=== PATIENT | female | born 1960 | race Caucasian/White ===

== ENCOUNTER 2017-10-13 13:39 | Emergency (ER) | payer OTHER ==
[~2017-10-13] VITALS: Ht 172.7 cm; Wt 65.8 kg
[~2017-10-13 13:39] MED LIST: COUMADIN2 MG PO
[2017-10-13] MEDS ORDERED: IBUPROFEN 600 MG TAB PO STA (14:16)
--- NOTE | 2017-10-13 14:54 | Diagnostic Imaging Report ---
EXAMINATION: PA and lateral views of the chest. COMPARISON: None CLINICAL HISTORY: Rule out PNA, weakness DISCUSSION: Lines/tubes: Left upper chest multilead cardiac device. Lungs: The lungs are well inflated and clear. There is no evidence of pneumonia or pulmonary edema. Pleura: There is no pleural effusion or pneumothorax. Heart and mediastinum: Cardiomediastinal silhouette is unremarkable. Pulmonary vasculature is normal. Prosthetic mitral valve. Bones and soft tissues: No acute bony abnormalities. Deformity of the right ninth rib, likely representing old healed fracture. Midline sternotomy wires. IMPRESSION: No acute cardiopulmonary abnormalities. Signed by: Dr. Volodymyr Escalante M.D. on 10/13/2017 2:50 PM
== END 2017-10-13 16:27 | disposition home or self-care (01) ==
LOC: ER 13:39
DX: R50.9 Fever, unspecified (principal); R05 Cough; J01.00 Acute maxillary sinusitis, unspecified; J01.10 Acute frontal sinusitis, unspecified
CPT/HCPCS: 71046; 87400; 99283

== ENCOUNTER 2018-01-08 17:19 | Inpatient (IN) | payer OTHER ==
[~2018-01-08] VITALS: Ht 162.6 cm; Wt 74.6 kg
[2018-01-08 18:06] LABS: BASOPHILS # (AUTO) 0.1 (0.0-0.1); BASOPHILS % 0.5 % (0.0-1.0); EOSINOPHILS # (AUTO) 0.4 (0.0-0.4); EOSINOPHILS % 2.5 % (0.0-6.0); HEMATOCRIT 36.2 % (34.2-44.1); HEMOGLOBIN 11.9 g/dL (12.0-16.0); LYMPHOCYTES # (AUTO) 2.1 (1.0-3.2); LYMPHOCYTES % 14.5 % (18.0-39.1); MEAN CORPUSCULAR HEMOGLOBIN 32.7 pg (28-32); MEAN CORPUSCULAR HGB CONC 32.9 g/dL (31-35); MEAN CORPUSCULAR VOLUME 99.5 fL (81-99); MONOCYTES # (AUTO) 1.6 (0.2-0.8); MONOCYTES % 11.3 % (4.4-11.3); NEUTROPHILS # (AUTO) 10.1 (2.1-6.9); NEUTROPHILS % 70.6 % (38.7-80.0); PLATELET COUNT 233 x10e3/uL (140-360); RED BLOOD COUNT 3.64 x10e6/uL (3.6-5.1); RED CELL DISTRIBUTION WIDTH 13.3 % (11.7-14.4)
[2018-01-08 18:10] LABS: INR 3.03; PROTHROMBIN TIME 29.5 seconds (11.9-14.5)
[2018-01-08 18:12] LABS: PARTIAL THROMBOPLASTIN TIME 90.4 seconds (23.8-35.5)
[2018-01-08 18:18] LABS: ALBUMIN/GLOBULIN RATIO 0.9 (0.8-2.0); ANION GAP 12.7 mmol/L (8-16); CALCIUM 8.1 mg/dL (8.4-10.2); CREATININE, SERUM 1.45 mg/dL (0.57-1.11); POTASSIUM 3.7 mmol/L (3.5-5.1)
[2018-01-08] MEDS ORDERED: GABAPENTIN300 MG PO (18:20)
[2018-01-08] MEDS ORDERED: OXYBUTYNIN CHLOR5 MG PO (18:20)
[2018-01-08] MEDS ORDERED: PROPRANOLOL HCL40 MG PO (18:20)
[2018-01-08] MEDS ORDERED: OMEPRAZOLE40 MG PO (18:20)
[2018-01-08] MEDS ORDERED: CHANTIX0.5 MG PO (18:20)
[2018-01-08] MEDS ORDERED: ABILIFY5 MG PO (18:20)
[2018-01-08] MEDS ORDERED: CLONIDINE HCL0.1 MG PO (18:20)
[2018-01-08 18:24] LABS: CREATINE KINASE MB 0.3 ng/mL (0-5.0)
[2018-01-08] MEDS ORDERED: SODIUM CHLORIDE 0.9% 1000ML 1,000 ML IV SCH (18:30)
--- NOTE | 2018-01-08 18:50 | Diagnostic Imaging Report ---
Examination: CT BRAIN WITHOUT CONTRAST History:Syncope, fall Comparison studies:None Technique: Axial images were obtained from the skull base to the vertex. Coronal and sagittal images reconstructed from the axial data. Intravenous contrast: None Findings: Scalp: No abnormalities. Bones: No fractures, blastic or lytic lesions. Brain sulci: Mildly prominent. Ventricles: Mildly prominent supratentorial ventricles. No hydrocephalus. Extra-axial space: Enlarged subarachnoid spaces along the superior convexities bilaterally. No acute abnormality. Parenchyma: Cortical-based encephalomalacia of the left posterior cerebral artery territory, primarily involving the cuneus of the left occipital lobe. Sellar/suprasellar region: No abnormalities. Craniocervical junction: Patent foramen magnum. No Chiari one malformation. Incidental findings: Atherosclerotic calcifications at the carotid siphons. Impression: 1. No acute intracranial abnormality. 2. 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 3. Mild generalized volume loss. This preliminary report was completed by the neuroradiology fellow Dr. Mac Razo. The images and preliminary report were reviewed and signed by Dr. Madhavi Manzanares, neuroradiology faculty, on 01/08/2018 at 2140 hours. Signed by: Dr. Madhavi Manzanares M.D. on 01/08/2018 9:40 PM
--- NOTE | 2018-01-08 18:50 | Diagnostic Imaging Report ---
PROCEDURE: A single AP view of the chest. COMPARISON: Patients [facility], DX, CHEST 2 VIEWS, 10/13/2017, 14:19. INDICATIONS: falls FINDINGS: Lines/tubes: Stable left upper chest multilead cardiac device Lungs: The lungs are well inflated and grossly clear. There is no evidence of pneumonia or pulmonary edema. Pleura: There is no pleural effusion or pneumothorax. Heart and mediastinum: Cardiac silhouette is unremarkable. Pulmonary vasculature is normal. Prosthetic valve Bones: No acute bony abnormality. IMPRESSION: 1. No acute cardiopulmonary abnormalities. Volodymyr Escalante M.D. Dictated by: Volodymyr Escalante M.D. on 01/08/2018 at 18:53 Electronically approved by: Volodymyr Escalante M.D. on 01/08/2018 at 18:53
--- NOTE | 2018-01-08 18:50 | Diagnostic Imaging Report ---
PROCEDURE:X-RAY RIGHT SHOULDER, COMPLETE COMPARISON:None. INDICATIONS:falls FINDINGS: Mild osteopenia. No acute displaced fracture or dislocation. No lytic or blastic lesion. Glenohumeral joint is grossly unremarkable. No a.c. separation. Visualized portions of the right lung are clear. CONCLUSION: No acute abnormalities. Volodymyr Escalante M.D. Dictated by: Volodymyr Escalante M.D. on 01/08/2018 at 18:54 Electronically approved by: Volodymyr Escalante M.D. on 01/08/2018 at 18:54
[2018-01-08 19:07] LABS: LYMPHOCYTES % (MANUAL) 13 % (19-48); MONOCYTES % (MANUAL) 12 % (3.4-9.0); NEUTROPHILS % (MANUAL) 75 % (40-74)
[2018-01-08 19:08] LABS: PLATELET ESTIMATE ADEQUATE; RBC MORPHOLOGY COMMENT NORMAL
[2018-01-08] MEDS ORDERED: DIATRIZOATE MEGL/DIATRIZOA SOD 30 ML BTL PO ONE ×2 (19:57→20:08)
[2018-01-08 20:19] LABS: BILIRUBIN,URINE NEGATIVE (NEGATIVE); CLARITY,URINE CLEAR (CLEAR); COLOR,URINE YELLOW (YELLOW); KETONES,URINE NEGATIVE (NEGATIVE); LEUKOCYTE ESTERASE ,URINE 1+ (NEGATIVE); NITRITE,URINE NEGATIVE (NEGATIVE); PROTEIN,URINE DIPSTICK NEGATIVE (NEGATIVE); URINE UROBILINOGEN 0.2 mg/dL (0.2 - 1)
[2018-01-08 20:28] LABS: BACTERIA,URINE FEW /HPF; EPITHELIAL CELLS,URINE FEW /LPF; RBC,URINE 0-5 /HPF (0-5)
[2018-01-08] MEDS ORDERED: SODIUM CHLORIDE 0.9% 1000ML 1,000 ML IV STA (20:29)
[2018-01-08] MEDS: CEFEPIME HCL 2 GM VIAL IV SCH (21:19)
--- NOTE | 2018-01-08 22:06 | Diagnostic Imaging Report ---
EXAM: CT ABDOMEN/PELVIS WO DATE: 01/08/2018 7:48 PM INDICATION: \S\FALL X 2 ON COUMADIN, ABD PAIN, GFR 37 \S\[id number] \S\2130 \S\Y COMPARISON: None TECHNIQUE: The abdomen and pelvis were scanned using a multidetector helical scanner. Coronal and sagittal reformations were obtained. Routine protocol performed. IV Contrast: 0 ml Isovue 300/370 Oral contrast was administered. FINDINGS: Lack of IV contrast decreases sensitivity in evaluating abdominal and pelvic organs. LOWER THORAX: Mild bibasilar groundglass opacity, favor atelectasis/scarring. Partially imaged median sternotomy, pacing leads, and mitral valve prosthesis. LIVER/BILIARY: Subtle contour nodularity, which can be seen with underlying liver disease. No masses on noncontrast evaluation. GALLBLADDER: Contracted containing stones. SPLEEN: Unremarkable PANCREAS: Unremarkable ADRENALS: No nodules KIDNEYS: Bilateral extrarenal pelvises. Nonobstructing 3 mm left lower pole renal calculus. GI TRACT: No wall thickening or evidence of obstruction. Normal appendix. VESSELS: Severe atherosclerotic calcifications. PERITONEUM/RETROPERITONEUM: No free air or fluid LYMPH NODES: No lymphadenopathy REPRODUCTIVE ORGANS/BLADDER: Status post hysterectomy. Moderately distended fluid filled bladder. SOFT TISSUES: Fat-containing subxiphoid (neck 3.8 cm) and umbilical hernias. BONES: Multilevel degenerative changes. Healed left L3 transverse process fracture. IMPRESSION: No acute abnormality or intra-abdominal hemorrhage. Signed by: Dr Loretta Loera MD on 01/08/2018 10:02 PM
[2018-01-08] MEDS: MORPHINE SULFATE 2 MG/ML SYR IV PRN (22:24)
[2018-01-08] MEDS: FAMOTIDINE 20 MG/2 ML VIAL IV SCH (22:24)
[2018-01-08] MEDS: ONDANSETRON HCL INJ 2 MG/ML VIAL IV PRN (22:25)
[2018-01-09] VITALS (40 sets, daily range): BP systolic 83–155; BP diastolic 36–80
[2018-01-09] MEDS: SODIUM CHLORIDE 0.9% 1000ML 1,000 ML IV SCH ×4 (02:02→17:39)
[2018-01-09 02:27] LABS: CREATINE KINASE MB 0.5 ng/mL (0-5.0)
[2018-01-09] MEDS ORDERED: LISINOPRIL2.5 MG PO (02:33)
[2018-01-09] MEDS ORDERED: OMEPRAZOLE20 MG PO (02:33)
[2018-01-09] MEDS ORDERED: GABAPENTIN400 MG PO (02:33)
[2018-01-09] MEDS ORDERED: PROPRANOLOL HCL60 MG PO (02:33)
[2018-01-09] MEDS ORDERED: AMBIEN10 MG PO (02:34)
[2018-01-09] MEDS ORDERED: CETIRIZINE HCL10 MG PO (02:37)
[2018-01-09] MEDS ORDERED: BARACLUDE0.5 MG PO (02:38)
[2018-01-09] MEDS ORDERED: CLONAZEPAM0.5 MG PO (02:39)
[2018-01-09] MEDS ORDERED: NASONEX17 GM NS (02:42)
[2018-01-09] MEDS ORDERED: ALBUTEROL0.63 MG/3 IH (02:45)
[2018-01-09] MEDS: MORPHINE SULFATE 2 MG/ML SYR IV PRN ×4 (03:33→20:11)
[2018-01-09 06:06] LABS: BASOPHILS # (AUTO) 0.1 (0.0-0.1); BASOPHILS % 0.5 % (0.0-1.0); EOSINOPHILS # (AUTO) 0.3 (0.0-0.4); EOSINOPHILS % 2.8 % (0.0-6.0); HEMATOCRIT 32.6 % (34.2-44.1); HEMOGLOBIN 10.9 g/dL (12.0-16.0); LYMPHOCYTES # (AUTO) 2.3 (1.0-3.2); LYMPHOCYTES % 22.2 % (18.0-39.1); MEAN CORPUSCULAR HEMOGLOBIN 32.7 pg (28-32); MEAN CORPUSCULAR HGB CONC 33.4 g/dL (31-35); MEAN CORPUSCULAR VOLUME 97.9 fL (81-99); MONOCYTES # (AUTO) 1.1 (0.2-0.8); MONOCYTES % 10.3 % (4.4-11.3); NEUTROPHILS # (AUTO) 6.6 (2.1-6.9); NEUTROPHILS % 63.7 % (38.7-80.0); PLATELET COUNT 199 x10e3/uL (140-360); RED BLOOD COUNT 3.33 x10e6/uL (3.6-5.1); RED CELL DISTRIBUTION WIDTH 13.4 % (11.7-14.4)
[2018-01-09 06:44] LABS: ALANINE AMINOTRANSFERASE 10 IU/L (0-55); ALBUMIN 2.8 g/dL (3.5-5.0); ALBUMIN/GLOBULIN RATIO 0.8 (0.8-2.0); ALKALINE PHOSPHATASE 74 IU/L (40-150); ANION GAP 11.2 mmol/L (8-16); BLOOD UREA NITROGEN 12 mg/dL (7-26); BUN/CREATININE RATIO 13 (6-25); CALCIUM 8.5 mg/dL (8.4-10.2); CARBON DIOXIDE 20 mmol/L (22-29); CHLORIDE 112 mmol/L (98-107); CHOL/HDL RATIO 9.3 (3.0-3.6); CHOLESTEROL 278 MD/DL (0-199); CREATININE, SERUM 0.89 mg/dL (0.57-1.11); EST GLOMERULAR FILTRATION RATE > 60 ML/MIN (60-); GLUCOSE 110 mg/dL (74-118); HDL CHOLESTEROL 30 MG/DL (40-60); LDL CHOLESTEROL 222 MG/DL (60-130); MAGNESIUM 1.7 MG/DL (1.3-2.1); POTASSIUM 4.2 mmol/L (3.5-5.1); SODIUM 139 mmol/L (136-145); TRIGLYCERIDES 130 MG/DL (0-149)
[2018-01-09] MEDS: CEFEPIME HCL 2 GM VIAL IV SCH ×2 (07:25→20:18)
[2018-01-09 09:07] LABS: CREATINE KINASE MB 0.5 ng/mL (0-5.0)
--- NOTE | 2018-01-09 10:15 | History and Physical ---
HISTORY: Ms. Llanes is a 57-year-old female with history of coronary artery disease, hypertension, mitral valve replacement, liver cirrhosis, who was brought to the emergency room because yesterday she started feeling weak. As per patient, she had 2 syncopal episodes. She states she had 1 syncopal episode and then she got a little better and then she had another one, so they brought her to the emergency room. PAST MEDICAL HISTORY: She has history of hypertension, coronary artery disease status post CABG, mitral valve replacement, permanent pacemaker, liver cirrhosis, hepatitis B and C. ALLERGIES: NO KNOWN DRUG ALLERGIES. SOCIAL HISTORY: She smokes, but she does not drink. SURGICAL HISTORY: She had open heart surgery in 2007. She had mitral valve replacement. She has permanent pacemaker. She has had total hysterectomy. PHYSICAL EXAMINATION: GENERAL: Today, she is awake and alert. VITAL SIGNS: Temperature is 100.3, blood pressure is 100/45. HEART: Regular rate. LUNGS: Poor inspiratory effort. ABDOMEN: Distended and soft. BLOOD WORK: White count was 14.37, today is 10.39; hemoglobin is 10.9; hematocrit is 32.6. Sodium 139, potassium 4.2, creatinine 0.89, glucose 110. Cholesterol is elevated. Urine showed 6 to 10 white blood cells. Urine culture and blood cultures are pending. She had a shoulder x-ray that showed no acute abnormalities. She had a chest x-ray that showed no acute abnormalities. She had a head CT that showed no acute intracranial abnormalities, an old left posterior cerebral artery infarct. She had an abdominal and pelvic CT that showed no acute abnormalities. ASSESSMENT: 1. Syncopal episode. 2. Rule out sepsis. Patient has fever, leukocytosis, and hypotension. 3. Coronary artery disease status post coronary artery bypass graft. 4. History of mitral valve replacement. 5. Permanent pacemaker. 6. Liver cirrhosis. 7. History of hepatitis B and C. PLAN: At present time is to admit the patient to the hospital. She is on IV antibiotics. We are going to get a cardiology consult with Dr. Parish. We are going to get a neurology consult with Dr. Brown, and infectious disease consult with Dr. Watters. Once we have available, we are going to reconcile her home medications. All this was discussed with patient. All questions were answered to satisfaction. I spent more than 40 minutes examining patient, reviewing ER papers, overnight events, x-rays, and discussing treatment plan with patient. Job#: [id number]
[2018-01-09] MEDS: FAMOTIDINE 20 MG/2 ML VIAL IV SCH ×2 (12:33→20:18)
[2018-01-09] MEDS: ONDANSETRON HCL INJ 2 MG/ML VIAL IV PRN ×2 (14:10→20:08)
--- NOTE | 2018-01-09 15:42 | Consultation ---
DATE OF CONSULTATION: January 09, 2018 ADDENDUM Echocardiogram: Normal LV size with moderately impaired systolic function with EF between 30% and 35%. There is mild aortic stenosis as well as normally functioning mechanical mitral valve prosthesis. EKG: Electronic atrial pacemaker, left ventricular hypertrophy with QRS widening and repolarization abnormality, inferior infarct, age undetermined. IMPRESSION 1. Syncope. 2. Possible sepsis with leukocytosis. 3. Hypotension. 4. Low-grade fever. 5. Coronary artery disease, status post coronary artery bypass graft. 6. History of mechanical mitral valve replacement. 7. Permanent pacemaker. 8. Liver cirrhosis. 9. Hepatitis B and C. 10. Hypertension. 11. Hyperlipidemia. RECOMMENDATIONS: Resume home warfarin. Check INR. Due to the presence of mechanical mitral valve, the patient needs target INR between 2.5 and 3.5. Will have her device interrogated. Check orthostatic vitals. Obtain carotid Doppler. However, based on her description, her most likely etiology of syncope is orthostatic. I agree with fluids. Watch volume status closely, given the patient's reduced left ventricular systolic function. IV antibiotics per infectious disease. Thank you for this consult. We will continue to follow. Job#: [id number]
--- NOTE | 2018-01-09 16:00 | Consultation ---
DATE OF CONSULTATION: January 09, 2018 REQUESTING PHYSICIAN: Dr. Jolynn Cortez. REASON FOR CONSULTATION: Mitral valve replacement. HISTORY OF PRESENT ILLNESS: This is a 57-year-old woman with history of mechanical mitral valve replacement secondary to mitral regurgitation, coronary artery disease, hypertension, hyperlipidemia, hepatis B and hepatitis C who was brought to the emergency room due to complaints of syncope. The patient reports she had been feeling well when she stood up and walked to the kitchen and on arriving at the kitchen she began to feel dizzy and then lost consciousness. The patient denied any chest pain or palpitations proceeding her symptoms. There was no tongue biting, bowel or bladder incontinence. She states she was unconscious for only a few minutes, but then woke up and felt normal. She later then attempted to walk to the bedroom when she had a second episode of syncope. She was, therefore, brought to the ER for further evaluation. REVIEW OF SYSTEMS: Negative except as per HPI. PAST MEDICAL HISTORY: 1. Mechanical mitral valve replacement secondary to mitral regurgitation. 2. Coronary artery disease. 3. Hypertension. 4. Hyperlipidemia. 5. Hepatitis B and hepatitis C. PAST SURGICAL HISTORY: 1. CABG. 2. Pacemaker. 3. Mitral valve replacement. 4. Hysterectomy. SOCIAL HISTORY: She smoked up to a pack a day for the last 3 years. No alcohol or drugs. FAMILY HISTORY: Noncontributory. ALLERGIES: NO KNOWN DRUG ALLERGIES. MEDICATIONS: Please see EMR. PHYSICAL EXAMINATION VITAL SIGNS: Temperature 99.9 degrees, pulse 60, respiratory rate 18, blood pressure 119/68, oxygen saturation 96% on room air. GENERAL: A well-nourished, well-developed woman in no acute distress. HEENT: Normocephalic, atraumatic. Pupils are equal. No scleral icterus. NECK: Supple. No thyromegaly or cervical lymphadenopathy. No carotid bruits. LUNGS: Clear to auscultation bilaterally. No wheezes or crackles. CARDIOVASCULAR: Normal rate, regular rhythm. Mechanical S1 with a systolic murmur at the right upper sternal border. ABDOMEN: Soft and nontender. EXTREMITIES: No edema. NEUROLOGIC: Nonfocal exam. LABORATORY DATA: WBC 10.39, hemoglobin 10.9, hematocrit 32.6, platelets 199,000, sodium 139, potassium 4.2, chloride 112, CO2 of 20, BUN 12, creatinine 0.89, troponin 0.024, BNP 282, cholesterol 278, triglycerides 130, LDL 22, HDL 30. IMAGING: Chest x-ray: No acute cardiopulmonary abnormalities. DICTATION ENDS, SEE ADDENDUM. Job#: [id number] ROSELINE
--- NOTE | 2018-01-09 16:54 | Consultation ---
DATE OF CONSULTATION: 01/09/2018 NEUROLOGY CONSULTATION HISTORY OF PRESENT ILLNESS: Ms. Llanes is a 57-year-old right hand dominant woman with past medical history significant for hypertension, hyperlipidemia, and heart disease, who presented to the emergency center at [facility] on January 08, 2018, following 2 syncopal events. Two days prior to admission, the patient experienced a severe migraine with associated nausea and vomiting. Due to the presence of nausea and vomiting, the patient had decreased oral intake for 2 days prior to admission. On the afternoon of admission, the patient stood from a seated position, then abruptly lost consciousness and fell to the ground. Ms. Llanes reports possible lightheadedness before loss of consciousness. She does not report chest pain or tightness, palpitations, shortness of breath, an epigastric rising sensation, or other unusual sensation. The period of unconsciousness was brief, lasting only a few seconds. There was no witnessed head or gaze version, tongue biting, flowing saliva, stiffening or shaking of the extremities, or bladder or bowel incontinence. When she regained consciousness, the patient was mildly confused. After this 1st syncopal event, the patient's son and [id number] helped her over to the couch. The patient's son wanted to call 911, but Ms. Llanes declined, stating she was "feeling better." The patient sat on the sofa for approximately 15 to 20 minutes. When she stood from the sofa, she experienced a brief sensation of lightheadedness and abruptly lost consciousness, falling to the ground. Once again, the period of unconsciousness lasted only a few seconds. There was no witnessed seizure activity. When the patient regained consciousness, she told her son to call 911. Ms. Llanes was transported to the emergency center at [facility] via ambulance for further evaluation of her symptoms. Upon admission to the emergency center, the patient had a temperature of 99.6 with a blood pressure 98/56 mmHg and a pulse of 60 beats per minute. The patient's neurological examination is documented as follows: Alert. Oriented times 3. Mood/affect normal. Speech normal. Cranial nerves normal (as tested). No cerebellar findings. No motor deficit. No sensory deficit. Reflexes normal. A CT of the brain without contrast was performed and did not show evidence of recent large territorial ischemia or hemorrhage. Routine blood work was significant for a creatinine of 1.45 with an estimated GFR of 37. The patient's urinalysis was significant for 1+ leukocyte esterase with 6 to 10 white blood cells. Ms. Llanes was admitted to the intensive care unit of [facility] for further evaluation and treatment of her symptoms. The patient does endorse a prior history of multiple syncopal events secondary to a medication. Once this medication was discontinued, the patient had no further syncopal events. The patient does not endorse recent infectious illness. She does not endorse recent changes to her medications. REVIEW OF SYSTEMS: Nausea, vomiting, syncope times 2, possible dizziness which is further described as lightheadedness, headache. Otherwise the 12-point review of systems is negative. PAST MEDICAL HISTORY: Hypertension, hyperlipidemia, COPD, hepatitis B and hepatitis C, liver cirrhosis, mixed depression/anxiety disorder, migraines, and a prior stroke without residual deficits. PAST SURGICAL HISTORY: Mitral valve replacement, total hysterectomy, pacemaker placement. PAST HOSPITALIZATIONS: Surgeries/procedures as listed, liver disease, migraines, childbirth times 1. FAMILY HISTORY: The patient's paternal and maternal grandparents are . Their medical histories are unknown. The patient's father is from coronary artery disease. Ms. Llanes's mother is still alive and healthy. The patient has 1 brother and 2 sisters. All of her siblings are alive and healthy. Ms. Llanes has 1 son, who was recently hospitalized with pancreatitis. SOCIAL HISTORY: The patient is . She completed school through the eighth grade. Ms. Llanes is on disability due to heart disease. The patient does report current tobacco use but is in the process of quitting. The patient does not report alcohol use for the past 10 years. She reports remote marijuana use. HOME MEDICATIONS: Albuterol sulfate nebulizer as needed, Abilify 2 mg by mouth daily, cetirizine 10 mg by mouth daily, clonazepam 0.5 mg by mouth daily, clonidine 0.1 mg by mouth at bedtime daily, entecavir 0.5 mg, gabapentin 400 mg by mouth daily, lisinopril 2.5 mg by mouth daily, Nasonex, omeprazole 20 mg by mouth daily, oxybutynin 5 mg by mouth three times daily, propranolol 60 mg by mouth three times daily, Chantix 0.5 mg by mouth twice daily, Coumadin 6 mg by mouth daily, Ambien 10 mg by mouth at bedtime daily as needed for insomnia. HOSPITAL MEDICATIONS: Cefepime, famotidine, gabapentin, morphine sulfate, Zofran, sodium chloride, warfarin. ALLERGIES: NO KNOWN DRUG ALLERGIES. NO KNOWN FOOD ALLERGIES. NO KNOWN ALLERGIES TO LATEX. NO KNOWN ALLERGIES TO IODINE OR OTHER CONTRAST MATERIALS. PHYSICAL EXAMINATION: VITAL SIGNS: Height 64 inches, weight 156 pounds, BMI 26.8 kg per meter squared. Blood pressure 128/56 mmHg, pulse 60 beats per minute, respiratory rate 18 breaths per minute, oxygen saturation 97% on room air. GENERAL: The patient is awake and alert, does not appear distressed. Overweight. HEENT: Normocephalic, atraumatic. Pupils are equal, round, and reactive to light. Moist mucous membranes. NECK: Supple. No appreciable thyromegaly. No appreciable carotid bruits. CARDIOVASCULAR: S1, S2, regular rate and rhythm. No murmurs, rubs, or gallops. RESPIRATORY: Clear to auscultation bilaterally. No wheezes, rhonchi, or rales. EXTREMITIES: The skin is warm and dry. No clubbing, cyanosis, or edema. The posterior tibial and dorsalis pedis pulses are 2+ and symmetric. SKIN: No rashes or lesions. NEUROLOGIC Memory/Attention: The patient is awake and alert, oriented to person, place, time, and situation. Cranial Nerves: Cranial nerve 1--Not tested. Cranial nerve 2, 3, 4, and 6--Pupils are equal and round, react briskly to light (from 4 mm to 2 mm). Extraocular movements intact. No nystagmus. Cranial nerve 5--Sensation to light touch and pinprick is intact in the bilateral V1 through V3 distributions. Strength of the temporalis and masseter muscles is within normal limits. Cranial nerve 7--The face is symmetric as are all facial movements. Strength is within normal limits. Cranial nerve 8--Hearing is intact to finger rub bilaterally. Cranial nerve 9, 10--The soft palate elevates equally and symmetrically. Cranial nerve 11--Normal strength of the bilateral sternocleidomastoid and trapezius muscles. Cranial nerve 12--The tongue protrudes midline and moves symmetrically from side to side. Strength: Bulk is normal. Strength is 5/5 in the bilateral deltoids, biceps, triceps, wrist flexors and extensors, finger flexors and extensors, intrinsic hand muscles, hip flexors, knee flexors extensors, ankle dorsiflexion and plantarflexion, and intrinsic foot muscles except as follows: There is effort-dependent weakness in multiple muscles examined in the right arm. Tone is normal. DTRs: Deep tendon reflexes are 1+ and symmetric at the triceps, biceps, brachioradialis, patellas, and Achilles. Plantar responses are flexor bilaterally. Sensation: Sensation is intact to light touch and pinprick in both arms and both legs. Cerebellar: [id number] and heel-romero movements are intact without dysmetria or other impairment. Gait: Deferred. Speech: Spontaneous speech is normal without appreciable dysarthria or aphasia. Involuntary Movements: None. Pronator Drift: None. LABORATORY DATA: Sodium 139, potassium 4.2, chloride 112, carbon dioxide 20, anion gap 11.2, BUN 12, creatinine 0.89, estimated GFR greater than 60, BUN to creatinine ratio 13, glucose 110, calcium 8.5, magnesium 1.7. Total bilirubin 0.4, AST 11, ALT 10, alkaline phosphatase 74. Total protein 6.1, albumin 2.8, globulin 3.3, albumin to globulin ratio 0.8. Creatine kinase 77, 96, 80. CK-MB 0.30, 0.50, 0.50. Troponin I 0.044, 0.028, 0.024. Lactic acid 13.4. Lipase 18. B-natriuretic peptide 281.6. Total cholesterol 278, triglycerides 130, LDL cholesterol 222, HDL cholesterol 30. The CBC with differential and platelets reveals a white blood cell count of 10.39 with 63.7% neutrophils, 22.2% lymphocytes, 10.3% monocytes, 2.8% eosinophils, and 0.5% basophils. The hemoglobin and hematocrit are 10.9 and 32.6, respectively. The platelet count is 199. PT 29.5, INR 3.03, PTT 90.4. Urinalysis is significant for 1+ leukocyte esterase and 6 to 10 white blood cells. DIAGNOSTIC STUDIES: Shoulder x-ray January 08, 2018: No acute abnormalities. Chest x-ray January 08, 2018: No acute cardiopulmonary abnormalities. CT of the brain without contrast January 08, 2018: On my review, there is no evidence of recent large territorial ischemia, hemorrhage, mass, or mass effect. There is a chronic ischemic infarct in the left posterior cerebral artery distribution. There is mild diffuse cerebral atrophy, more than is expected for age. There are findings compatible with mild to moderate chronic small-vessel ischemic disease. CT of the abdomen/pelvis without contrast January 08, 2018: No acute abnormality or intraabdominal hemorrhage. EKG January 08, 2018: Paced rhythm. Echocardiogram January 09, 2018: Ejection fraction of 50% to 55%. Concentric left ventricular hypertrophy. Left atrial enlargement. Prosthetic mitral valve. Mild mitral regurgitation and pulmonic insufficiency. Moderate tricuspid regurgitation. ASSESSMENT AND PLAN: Ms. Llanes is a 57-year-old right hand dominant woman with past medical history as detailed, admitted to [facility] status post 2 syncopal events. At present, the patient's neurological examination is nonfocal. Her laboratory data and other diagnostic studies have been reviewed and are documented above. At present, there is low suspicion for a neurological etiology of the patient's recent syncopal events. No further evaluation or treatment is recommended from the neurology service. Please call again with any questions or concerns regarding this patient. Thank you for this consultation. Time spent: 50 minutes. Job#: [id number] EV LEONIE
[2018-01-09] MEDS: WARFARIN SOD 2 MG TAB PO SCH (17:42)
[2018-01-09 18:33] LABS: INR 2.64; PROTHROMBIN TIME 26.5 seconds (11.9-14.5)
[2018-01-09 18:47] LABS: CREATINE KINASE MB 0.5 ng/mL (0-5.0)
[2018-01-10] VITALS (9 sets, daily range): BP systolic 130–162; BP diastolic 55–82
[2018-01-10] MEDS: SODIUM CHLORIDE 0.9% 1000ML 1,000 ML IV SCH ×3 (00:05→12:05)
[2018-01-10] MEDS: ONDANSETRON HCL INJ 2 MG/ML VIAL IV PRN ×2 (04:03→09:16)
[2018-01-10] MEDS: MORPHINE SULFATE 2 MG/ML SYR IV PRN ×3 (04:06→20:20)
[2018-01-10] MEDS: CEFEPIME HCL 2 GM VIAL IV SCH ×2 (09:07→20:45)
[2018-01-10] MEDS: FAMOTIDINE 20 MG/2 ML VIAL IV SCH (09:07)
[2018-01-10] MEDS: GABAPENTIN 400 MG CAP PO SCH (09:07)
--- NOTE | 2018-01-10 09:36 | Progress Note ---
DATE: January 10, 2018 Ms. Llanes is a 57-year-old female with history of coronary artery disease, status post CABG, mitral valve replacement, permanent pacemaker, liver cirrhosis, hepatitis B and C. She came to the emergency room after having 2 syncopal episodes. She has been evaluated by the neurologist and cleared from her side. She has also been evaluated by a fur designer. She was a little hypotensive with an elevated white count, so an infectious disease consult was also requested for possible infection. PHYSICAL EXAMINATION GENERAL: Today, she is awake and alert. She states she is not feeling good. She is nauseated. VITALS: Temperature 98.5, blood pressure 142/67, pulse 58, respiratory rate 18. HEART: Regular rate. LUNGS: Clear to auscultation. ABDOMEN: Soft. LABS: On the blood work, potassium 4.2, creatinine 0.89, glucose 110. White count 10.3, hemoglobin 10.9, hematocrit 32.6. Blood cultures are so far negative. Urine culture is still in progress. Shoulder x-ray was negative. Chest x-ray was negative. Abdominal and pelvic CT showed no acute findings. ASSESSMENT AND PLAN 1. Syncopal episode. Trying to find out the etiology. 2. Probable urinary tract infection with fever, leukocytosis and hypotension, on intravenous antibiotics, improving. 3. Coronary artery disease, status post coronary artery bypass graft. 4. Mitral valve replacement. 5. Permanent pacemaker. 6. Liver cirrhosis. 7. History of hepatitis B and C. The plan is to continue heart diet. Continue IV antibiotics. Pain and nausea medications. The patient is also on warfarin. We are going to monitor PT and INR that today was 2.64. All of this was discussed with the patient, and all questions were answered to satisfaction. Job#: [id number]
[2018-01-10 13:06] LABS: INR 2.5; PROTHROMBIN TIME 25.4 seconds (11.9-14.5)
[2018-01-10] MEDS ORDERED: FUROSEMIDE INJ 10 MG/ML 4 ML VIAL IV SCH (15:15)
[2018-01-10] MEDS: FUROSEMIDE INJ 10 MG/ML 2 ML VIAL IV SCH (15:20)
--- NOTE | 2018-01-10 15:33 | Progress Note ---
DATE: January 10, 2018 SUBJECTIVE: The patient denies chest pain, however she is now complaining of shortness of breath and orthopnea. OBJECTIVE VITAL SIGNS: Temperature 98.3 degrees, pulse 61, respiratory rate 19, blood pressure 141/55. Oxygen saturation 97%. GENERAL: Awake, alert, in no acute distress. LUNGS: Clear to auscultation bilaterally. No wheezes or crackles. CARDIOVASCULAR: Normal rate, regular rhythm. Mechanical S1 with systolic murmur at the right upper sternal border. ABDOMEN: Soft, nontender. EXTREMITIES: No edema. CARDIAC MEDICATIONS: Warfarin 4 mg p.o. daily. LABS: BNP 1674. INR 2.5. CAROTID DOPPLER: With elevated velocities in the right internal carotid artery suggestive 50% to 75% focal stenosis. Also with elevated velocities in the left internal carotid artery suggestive of 50% to 75% focal stenosis although elevation of velocities due to vessel tortuosity could not be ruled out. IMPRESSION 1. Syncope. 2. Emkeq-ar-gtdlwff systolic heart failure. 3. Possible sepsis with leukocytosis. 4. Coronary artery disease status post coronary artery bypass graft. 5. History of mechanical mitral valve replacement. 6. Permanent pacemaker. 7. Liver cirrhosis. 8. Hepatitis B and C. 9. Hypertension. 10. Hyperlipidemia. RECOMMENDATIONS: Continue home warfarin. INR is therapeutic. Patient's target INR is 2.5 to 3.5 due to her mechanical mitral valve. Awaiting device interrogation. Patient is no longer orthostatic. Suspect she is now actually volume overloaded due to her IV fluids. Stop fluid and start gentle diuretics. IV antibiotics per infectious disease. Thank you for this consult. We will continue to follow. Job#: [id number] ZHANG
[2018-01-10] MEDS ORDERED: SODIUM CHLORIDE 0.9% 100 ML ONE (16:33)
[2018-01-10] MEDS ORDERED: IOPAMIDOL 370 MG/ML 200 ML INFUS..BTL INJ ONE (16:33)
[2018-01-10] MEDS: WARFARIN SOD 2 MG TAB PO SCH (17:06)
--- NOTE | 2018-01-10 17:10 | Diagnostic Imaging Report ---
History: None Comparison studies:None Technique: Axial images were obtained from the thoracic inlet. Coronal and sagittal images reconstructed from the axial data. Intravenous contrast: 100 cc of Omnipaque 300. Findings: Aortic arch and major vessels: Atherosclerotic plaque seen at the origin of the great vessels, with mild stenosis. Common carotid arteries: Patent Right internal carotid artery: Medialized course of the right internal carotid artery. Moderate (approximately 65%) narrowing of the internal carotid artery near the bifurcation. Less than 30% proximal to the skull base and at the carotid siphons. Otherwise patent Left internal carotid artery: Less than 30% stenosis at the bulb due to a calcified plaque. Bone stenosing calcification proximal to the skull base and of the carotid siphons. Otherwise patent Right vertebral artery: Patent. No abnormalities. Left vertebral artery: Patent. No abnormalities. Imaged thorax: * Bilateral pleural effusions and patchy airspace opacities in the right upper lobe, representing edema, infection, and/or atelectasis. * Mediastinal wires and left subclavian approach pacemaker, partially imaged. IMPRESSION: 1. Moderate (approximately 65%) narrowing of the left carotid bulb 2. Less than 30% stenosis on the right. 3. Additional less than 30% stenosis in both carotid arteries proximal to the skull base and in the carotid siphons. 4. Bilateral pleural effusions and right upper lobe opacities, representing edema, infection, and/or atelectasis. Signed by: Dr. Mario Gomez M.D. on 01/10/2018 5:56 PM
--- NOTE | 2018-01-10 17:12 | Diagnostic Imaging Report ---
PROCEDURE: Frontal and lateral views of the chest. COMPARISON: Patients [facility], CT, CT ABDOMEN/PELVIS WO, 01/08/2018, 21:29. INDICATIONS: syncope, dizziness FINDINGS: Lines/tubes: Stable left upper chest multiple lead cardiac device. Lungs: The lungs are well inflated. There is no evidence of pneumonia or pulmonary edema. Pleura: Stable mild blunting of the posterior costophrenic sulci, due to mild pleural thickening. Heart and mediastinum: Stable cardiomegaly. Pulmonary vasculature is normal. Prosthetic mitral valve Bones: No acute bony abnormality. IMPRESSION: 1. stable cardiomegaly, without acute cardiopulmonary disease. Volodymyr Escalante M.D. Dictated by: Volodymyr Escalante M.D. on 01/10/2018 at 17:16 Electronically approved by: Volodymyr Escalante M.D. on 01/10/2018 at 17:16
[2018-01-10] MEDS ORDERED: IBUPROFEN 400 MG TAB PO PRN (18:15)
[2018-01-10] MEDS: CLONAZEPAM 0.5 MG TAB PO SCH (18:45)
[2018-01-11] VITALS (7 sets, daily range): BP systolic 116–152; BP diastolic 57–75
[2018-01-11] MEDS: FAMOTIDINE 20 MG/2 ML VIAL IV SCH ×2 (00:27→09:03)
[2018-01-11] MEDS: MORPHINE SULFATE 2 MG/ML SYR IV PRN ×2 (00:28→06:12)
[2018-01-11] MEDS: ONDANSETRON HCL INJ 2 MG/ML VIAL IV PRN (06:00)
[2018-01-11] MEDS: CEFEPIME HCL 2 GM VIAL IV SCH (08:15)
[2018-01-11] MEDS: GABAPENTIN 400 MG CAP PO SCH (09:03)
[2018-01-11] MEDS: FUROSEMIDE INJ 10 MG/ML 2 ML VIAL IV SCH (09:03)
[2018-01-11] MEDS: CLONAZEPAM 0.5 MG TAB PO SCH (09:03)
--- NOTE | 2018-01-11 10:10 | Discharge Summary ---
Ms. Llanes is a 57-year-old female with a history of coronary artery disease, status post CABG, mitral valve replacement, permanent pacemaker, liver cirrhosis, hepatitis B and C, came to the emergency room after 2 syncopal episodes. She has been cleared by neurologist. Cardiology has been seeing her. She was having elevated white count and low blood pressure. We thought she had an infection. Urine culture did not show any type of infection. The plan is to discharge her home if it is okay with the consultants. PHYSICAL EXAMINATION GENERAL: She is awake and alert. VITALS: Temperature is 98, blood pressure 133/64. HEART: Regular. LUNGS: Clear to auscultation. ABDOMEN: Soft. BLOOD WORK: Potassium is 4.2, creatinine 0.89, glucose 110. White count 10.3, hemoglobin 10.9, hematocrit 32.6. Blood culture is negative. Urine culture is contaminated. INR is 2.5. CTA shows right internal carotid moderate 65%, less than 30% in the other place. Moderate narrowing of the left carotid bulb, less than 30% on the right. Less than 30% in both carotids proximal. Bilateral pleural effusions. DISCHARGE DIAGNOSES 1. Syncopal episode. 2. Coronary artery disease, status post coronary artery bypass graft. 3. Mitral valve replacement. 4. Permanent pacemaker. 5. Liver cirrhosis. 6. History of hepatitis B and C. PLAN: At the present time, discharge the patient home on her home medications. Continue Coumadin. She needs followup with her PCP regarding her PT and INR. She is also going to have a chest x-ray. Follow up with her PCP to continue to monitor clearance of the pleural effusions. All of this was discussed with the patient and nurse. All questions were answered to satisfaction. ERASMO COTTON MD Job#: [id number] [place]
--- NOTE | 2018-01-11 12:28 | Progress Note ---
DATE: January 11, 2018 CARDIOLOGY PROGRESS NOTE SUBJECTIVE: The patient denies chest pain. She reports her shortness of breath is better. OBJECTIVE VITAL SIGNS: Temperature 98.8 degrees, pulse 60, respiratory rate 16, blood pressure 133/64, oxygen saturation 97% on room air. GENERAL: Awake, alert, in no acute distress. LUNGS: Clear to auscultation bilaterally. No wheezes or crackles. CARDIOVASCULAR: Normal rate, regular rhythm. Mechanical S1 with systolic murmur at the right upper sternal border. ABDOMEN: Soft, nontender. EXTREMITIES: No edema. CARDIAC MEDICATIONS 1. Furosemide 20 mg IV daily. 2. Warfarin 4 mg p.o. daily. LABS: None today. TELEMETRY: A sensed, V paced. IMPRESSION 1. Syncope. 2. [id number] systolic heart failure. 3. Possible sepsis with leukocytosis. 4. Coronary artery disease status post coronary artery bypass graft. 5. History of mechanical mitral valve replacement. 6. Permanent pacemaker. 7. Liver cirrhosis. 8. Hepatitis B and hepatitis C. 9. Hypertension. 10. Hyperlipidemia. RECOMMENDATIONS: Continue current warfarin dose. Check INR today. Her target is 2.5 to 3.5 due to her mechanical mitral valve. The patient's device interrogation revealed a dual-chamber pacemaker with over 9 years battery life. She is 82% A paced with 99% V paced. Her underlying rhythm is sinus bradycardia in the 30s to 40s. No AFib and no ventricular high rates were reported. Suspect the patient's syncope was secondary to orthostatic hypotension. This has resolved, and she was actually volume overloaded yesterday. IV fluids were stopped, and her symptoms have improved with gentle diuretics. We will stop diuretics on discharge. IV antibiotics per infectious disease. Thank you for this consult. We will continue to follow. Job#: [id number]
[2018-01-11 12:30] LABS: INR 2.39; PROTHROMBIN TIME 24.5 seconds (11.9-14.5)
[2018-01-11 12:34] LABS: ANION GAP 16.7 mmol/L (8-16); BLOOD UREA NITROGEN 8 mg/dL (7-26); BUN/CREATININE RATIO 10 (6-25); CALCIUM 10.1 mg/dL (8.4-10.2); CARBON DIOXIDE 24 mmol/L (22-29); CHLORIDE 101 mmol/L (98-107); CREATININE, SERUM 0.84 mg/dL (0.57-1.11); EST GLOMERULAR FILTRATION RATE > 60 ML/MIN (60-); GLUCOSE 133 mg/dL (74-118); POTASSIUM 3.7 mmol/L (3.5-5.1); SODIUM 138 mmol/L (136-145)
[2018-01-11] MEDS ORDERED: WARFARIN SOD 3 MG TAB PO ONE (15:00)
[2018-01-11] MEDS ORDERED: HEPARIN 25,000 UNIT/D5W 250ML 250 ML IV SCH (15:00)
[2018-01-11] MEDS: WARFARIN SOD 2 MG TAB PO SCH (15:35)
[2018-01-11] MEDS ORDERED: TRAMADOL HCL 50 MG TAB PO PRN (16:15)
== END 2018-01-11 18:23 | disposition left against medical advice (07) | DRG 871 ==
LOC: ER 17:19 → ERHOLD 21:37 → ICU 01-09 01:15 → MED/SURG2 01-09 18:49
PROVIDERS: ADMIT Internal Medicine; ATTEND Internal Medicine
DX: A41.9 Sepsis, unspecified organism (principal); I50.23 Acute on chronic systolic (congestive) heart failure; B18.1 Chronic viral hepatitis B without delta-agent; N17.9 Acute kidney failure, unspecified; I25.10 Atherosclerotic heart disease of native coronary artery without angina pectoris; K74.60 Unspecified cirrhosis of liver; B19.20 Unspecified viral hepatitis C without hepatic coma; Z95.0 Presence of cardiac pacemaker; Z79.01 Long term (current) use of anticoagulants; Z95.2 Presence of prosthetic heart valve; I11.0 Hypertensive heart disease with heart failure; Z95.1 Presence of aortocoronary bypass graft; R00.1 Bradycardia, unspecified; F17.210 Nicotine dependence, cigarettes, uncomplicated; E66.9 Obesity, unspecified; Z68.26 Body mass index [BMI] 26.0-26.9, adult; R19.7 Diarrhea, unspecified; E86.0 Dehydration
CPT/HCPCS: 36415; 70450; 70498; 71045; 71046; 74176; 80048; 80053; 80061; 81001; 82550; 82553; 83605; 83690; 83735; 83880; 84484; 85025; 85610; 85730; 87040; 87086; 93005; 93306; 93880; 96367; 99285; J0692; J1940; J2270; J2405; J7030; J7050; Q9967

== ENCOUNTER 2019-01-28 12:31 | Emergency (ER) | payer OTHER ==
[~2019-01-28] VITALS: Ht 162.6 cm; Wt 74.4 kg
[~2019-01-28 12:31] MED LIST changes: +ABILIFY5 MG PO; +ALBUTEROL0.63 MG/3 IH; +AMBIEN10 MG PO; +BARACLUDE0.5 MG PO; +CETIRIZINE HCL10 MG PO; +CHANTIX0.5 MG PO; +CLONAZEPAM0.5 MG PO; +CLONIDINE HCL0.1 MG PO; +GABAPENTIN300 MG PO; +GABAPENTIN400 MG PO; +LISINOPRIL2.5 MG PO; +NASONEX17 GM NS; +OMEPRAZOLE20 MG PO; +OMEPRAZOLE40 MG PO; +OXYBUTYNIN CHLOR5 MG PO; +PROPRANOLOL HCL40 MG PO; +PROPRANOLOL HCL60 MG PO
--- OUTSIDE RECORDS SUMMARY | 2019-01-28 12:34 | XMS REPORT | Clinical Summary ---
Author Author [facility] Organization [facility] Address Unknown Phone Unavailable Care Team Providers Care Data Warehousing Engineer Name Role Phone Denisa Valdez PCP Allergies Comments Active Allergy Reactions Severity Noted Date Codeine Itching High 01/31/2013 Medications End Date Status Medication Sig Dispensed Refills Start Date Active propranolol (INDERAL) 60 Take 60 mg by 0 MG tablet mouth daily. Active aspirin 81 MG chewable 81 mg. Chew 0 tablet 81 mg by mouth daily. Active cetirizine (ZYRTEC) 10 MG Take 10 mg by 0 tablet mouth. Take 1 4 tablet by mouth daily. Active mometasone (NASONEX) 50 100 mcg as 0 mcg/actuation nasal spray needed 2 4 Sprays by each nostril route daily.. Active albuterol HFA (PROAIR Inhale 2 0 HFA, PROVENTIL HFA, puffs by 4 VENTOLIN HFA) 90 mouth via mcg/actuation inhaler inhaler as needed Inhale 2 Puffs by mouth 4 times daily as needed for Wheezing.. Active atorvastatin (LIPITOR) 40 Take 40 mg by 0 MG tablet mouth nightly 4 Take 1 tablet by mouth at bedtime nightly.. Active cloNIDine (CATAPRES) 0.1 Take 0.1 mg 0 MG tablet by mouth. 4 Take 1 tablet by mouth 2 times daily. Active gabapentin (NEURONTIN) Take 400 mg 0 300 MG capsule by mouth 3 4 (three) times daily . Active lisinopril Take 2.5 mg 0 (PRINIVIL,ZESTRIL) 10 MG by mouth 3 tablet daily Take 1 tablet by mouth daily.. Active multivitamin per tablet Take by mouth 0 daily Take by mouth.. Active omeprazole (PRILOSEC) 20 Take 20 mg by 0 MG capsule mouth. Take 1 4 capsule by mouth 2 times daily. Active warfarin (COUMADIN) 2 MG 4 mg Daily 0 tablet except 4 Sunday takes a 1/2 tablet. Active zolpidem (AMBIEN) 10 mg Take by 0 tablet mouth. Take by mouth nightly as needed. Active beclomethasone (QVAR) 40 Inhale 1 puff 0 mcg/actuation by mouth via inhalerIndications: inhaler as Cirrhosis (HCC), Chronic needed . hepatitis C without hepatic coma (HCC), Screening for malignant neoplasm Active clonazePAM (KLONOPIN) 0.5 Take 0.5 mg 0 MG tabletIndications: by mouth 2 Cirrhosis (HCC), Chronic (two) times hepatitis C without daily as hepatic coma (HCC), needed for Screening for malignant Anxiety. neoplasm Active fluticasone (FLONASE) 50 1 spray by 0 mcg/actuation nasal spray Nasal route daily. Active ARIPiprazole (ABILIFY) 2 Take 2 mg by 0 MG tablet mouth daily. Active oxybutynin (DITROPAN) 5 Take by 0 MG tabletIndications: mouth. 8 Other cirrhosis of liver (HCC), Chronic hepatitis C without hepatic coma (HCC), Chronic hepatitis B without delta agent without hepatic coma (HCC), Esophageal varices without bleeding, unspecified esophageal varices type (HCC), Screening for malignant neoplasm Active varenicline tartrate Take by mouth 0 (CHANTIX ORAL) 2 (two) times daily. Active PEG Use as 1 packet 0 [id number] directed. 8 C (MOVIPREP) 100-7.5-2.691 gram PwPk packet Active enoxaparin (LOVENOX) 60 Inject 0 mg/0.6 mL Syrg subcutaneousl y. Active entecavir (BARACLUDE) 0.5 Take 1 tablet 90 tablet 1 MG tabletIndications: (0.5 mg 9 Other cirrhosis of liver total) by (HCC), Chronic hepatitis mouth daily. B without delta agent without hepatic coma (HCC) 04/04/2018 Discontinued calcium carbonate-vitamin Take 1 tablet 0 D2 500 mg(1,250mg) -200 by mouth unit tablet daily. 04/04/2018 Discontinued calcium carbonate Take 600 mg 0 (OS-ERINN) 600 mg (1,500 by mouth. mg) Tab Take 600 mg by mouth 2 times daily. 04/04/2018 Discontinued ferrous sulfate 325 (65 Take by 0 FE) MG tablet mouth. Take by mouth. 04/04/2018 Discontinued docusate sodium Take 100 mg 0 (DOC-Q-LACE) 100 MG by mouth. 3 capsule Take 1 capsule by mouth 2 times daily as needed for Constipation. 04/04/2018 Discontinued enoxaparin (LOVENOX) 60 Inject 0 mg/0.6 mL Syrg subcutaneousl y. 04/04/2018 Discontinued lactulose (CHRONULAC) 20 Take 30 mLs 500 mL 15 gram/30 mL 2-3 times 8 solutionIndications: daily or as Other cirrhosis of liver needed to (HCC), Chronic hepatitis have 2-3 soft C without hepatic coma bowel (HCC), Chronic hepatitis movements B without delta agent daily. without hepatic coma (HCC), Esophageal varices without bleeding, unspecified esophageal varices type (HCC), Screening for malignant neoplasm 08/08/2018 Discontinued entecavir (BARACLUDE) 0.5 Take 1 tablet 30 tablet 6 MG tabletIndications: (0.5 mg 8 Other cirrhosis of liver total) by (HCC), Chronic hepatitis mouth daily. C without hepatic coma (HCC), Chronic hepatitis B without delta agent without hepatic coma (HCC), Esophageal varices without bleeding, unspecified esophageal varices type (HCC), Screening for malignant neoplasm 01/20/2019 Discontinued entecavir (BARACLUDE) 0.5 Take 1 tablet 30 tablet 6 MG tabletIndications: (0.5 mg 9 Other cirrhosis of liver total) by (HCC), Chronic hepatitis mouth daily. C without hepatic coma (HCC), Chronic hepatitis B without delta agent without hepatic coma (HCC), Esophageal varices without bleeding, unspecified esophageal varices type (HCC), Screening for malignant neoplasm Active Problems Problem Noted Date Chronic hepatitis B without delta agent without hepatic coma 10/19/2014 Chronic hepatitis C without hepatic coma 09/18/2014 History of mitral valve replacement 04/20/2014 Esophageal varices 09/25/2013 Tobacco user 09/25/2013 Skin lesion 09/25/2013 Pacemaker 09/25/2013 Rash 02/11/2013 Anxiety and depression 02/11/2013 History of alcohol use 02/11/2013 Coronary artery disease 02/11/2013 Screening for malignant neoplasm 02/11/2013 Headache 01/03/2013 Coagulation disorder 01/02/2013 Coumadin toxicity 01/02/2013 Cirrhosis 01/02/2013 GI bleed 01/02/2013 Tobacco use disorder 01/02/2013 Encounters Care Team Description Date Type Specialty Noemi Patel RN Other cirrhosis of liver (HCC); Chronic hepatitis C without hepatic coma (HCC); Chronic hepatitis B without delta agent without hepatic coma (HCC); Esophageal varices without bleeding, unspecified esophageal varices type (HCC); Screening for malignant neoplasm 01/20/2019 Orders Only Hepatology Israel Strange PA Question 11/22/2018 Telephone Hepatology Cameron White MD Other cirrhosis of liver (HCC); Chronic hepatitis C without hepatic coma (HCC); Chronic hepatitis B without delta agent without hepatic coma (HCC); Esophageal varices without bleeding, unspecified esophageal varices type (HCC); Screening for malignant neoplasm 10/31/2018 Hospital Radiology Encounter Denisa Valdez 10/31/2018 Outside Orders Radiology Cameron White MD 08/23/2018 Outside Orders Radiology Noemi Patel RN Pending EGD 08/20/2018 Telephone Hepatology Olesya Hairston MD Diller, Karen Cardwell PA-C Other cirrhosis of liver (HCC) (Primary Dx); Chronic hepatitis C without hepatic coma (HCC); Chronic hepatitis B without delta agent without hepatic coma (HCC); Esophageal varices without bleeding, unspecified esophageal varices type (HCC); Screening for malignant neoplasm 08/08/2018 Office Visit Hepatology Cameron White MD UPPER ENDOSCOPY,BIOPSY 04/11/2018 Surgery Gastroenterology Anival Momin Jr., MD 04/11/2018 Anesthesia Gastroenterology Event Cameron White MD 04/11/2018 Hospital Gastroenterology Encounter Saida Hatfield RN other 04/05/2018 Telephone Hepatology Saida Hatfield RN 04/05/2018 Orders Only Hepatology Resource, [facility] Preadmit Phone 04/04/2018 Hospital Pre-Admission Testing Encounter Lali Sanchez Procedure (EGD/Colon canceled) 03/15/2018 Telephone Hepatology Israel Strange PA Other cirrhosis of liver (HCC) (Primary Dx) 03/15/2018 Orders Only Hepatology Lali Fraga PA-C Follow-up 03/04/2018 Telephone Hepatology Cameron White MD Other cirrhosis of liver (HCC) 02/14/2018 Orders Only Transplant Hepatology Lali Sanchez Isabella Appointment (reminder letter) 01/28/2018 Telephone Hepatology after 01/27/2018 Immunizations Name Dates Previously Given Next Due Td 02/12/2014 Tdap 08/24/2014 Family History Medical History Relation Name Comments Heart disease Father Relation Name Status Comments Father Social History Date Tobacco Use Types Packs/Day Years Used Current Every Day Smoker 0 40 Smokeless Tobacco: Never Used Tobacco Cessation: Ready to Quit: Yes Comments: Started to decrease amount, down to 2 a day Alcohol Use Drinks/Week oz/Week Comments No Sex Assigned at Date Recorded Not on file Industry Job Start Date Occupation Not on file Not on file Not on file Travel End Travel History Travel Start No recent travel history available. Last Filed Vital Signs Time Taken Vital Sign Reading 08/08/2018 12:46 PM [employer] Blood Pressure 103/70 08/08/2018 12:46 PM [employer] Pulse 60 08/08/2018 12:46 PM [employer] Temperature 36.9 C (98.5 F) 08/08/2018 12:46 PM [employer] Respiratory Rate 20 08/08/2018 12:46 PM [employer] Oxygen Saturation 96% - Inhaled Oxygen - Concentration 08/08/2018 12:46 PM [employer] Weight 69.4 kg (153 lb) 08/08/2018 12:46 PM [employer] Height 162.6 cm (5' 4") 08/08/2018 12:46 PM [employer] Body Mass Index 26.26 Plan of Treatment Care Team Description Date Type Specialty Jacoby Zuniga MD [address] [id number] Resource, [facility] E 02/11/2019 Office Visit Hepatology Procedures Comments Procedure Name Priority Date/Time Associated Diagnosis US ABDOMEN COMPLETE Routine 10/31/2018 Other cirrhosis of liver 11:01 AM CDT (HCC) Chronic hepatitis C without hepatic coma (HCC) Chronic hepatitis B without delta agent without hepatic coma (HCC) Esophageal varices without bleeding, unspecified esophageal varices type (HCC) Screening for malignant neoplasm CBC W/PLT COUNT & AUTO Routine 08/12/2018 Other cirrhosis of liver DIFFERENTIAL 12:20 PM [employer] (HCC) Chronic hepatitis C without hepatic coma (HCC) Chronic hepatitis B without delta agent without hepatic coma (HCC) Esophageal varices without bleeding, unspecified esophageal varices type (HCC) Screening for malignant neoplasm HBSAG CONFIRMATION Routine 08/12/2018 Other cirrhosis of liver 12:20 PM [employer] (HCC) Chronic hepatitis C without hepatic coma (HCC) Chronic hepatitis B without delta agent without hepatic coma (HCC) Esophageal varices without bleeding, unspecified esophageal varices type (HCC) Screening for malignant neoplasm HEPATITIS B SURFACE Routine 08/12/2018 Other cirrhosis of liver ANTIGEN 12:20 PM [employer] (HCC) Chronic hepatitis C without hepatic coma (HCC) Chronic hepatitis B without delta agent without hepatic coma (HCC) Esophageal varices without bleeding, unspecified esophageal varices type (HCC) Screening for malignant neoplasm ALPHA FETOPROTEIN (AFP), Routine 08/12/2018 Other cirrhosis of liver TUMOR MARKER 12:20 PM [employer] (HCC) Chronic hepatitis C without hepatic coma (HCC) Chronic hepatitis B without delta agent without hepatic coma (HCC) Esophageal varices without bleeding, unspecified esophageal varices type (HCC) Screening for malignant neoplasm PROTHROMBIN TIME/INR Routine 08/12/2018 Other cirrhosis of liver 12:20 PM [employer] (HCC) Chronic hepatitis C without hepatic coma (HCC) Chronic hepatitis B without delta agent without hepatic coma (HCC) Esophageal varices without bleeding, unspecified esophageal varices type (HCC) Screening for malignant neoplasm CBC W/PLT COUNT & AUTO Routine 08/12/2018 Other cirrhosis of liver DIFFERENTIAL 12:20 PM [employer] (HCC) Chronic hepatitis C without hepatic coma (HCC) Chronic hepatitis B without delta agent without hepatic coma (HCC) Esophageal varices without bleeding, unspecified esophageal varices type (HCC) Screening for malignant neoplasm HEPATIC FUNCTION PANEL Routine 08/12/2018 Other cirrhosis of liver 12:20 PM [employer] (HCC) Chronic hepatitis C without hepatic coma (HCC) Chronic hepatitis B without delta agent without hepatic coma (HCC) Esophageal varices without bleeding, unspecified esophageal varices type (HCC) Screening for malignant neoplasm BASIC METABOLIC PANEL (7) Routine 08/12/2018 Other cirrhosis of liver 12:20 PM [employer] (HCC) Chronic hepatitis C without hepatic coma (HCC) Chronic hepatitis B without delta agent without hepatic coma (HCC) Esophageal varices without bleeding, unspecified esophageal varices type (HCC) Screening for malignant neoplasm REPORT OF PROCEDURE - 04/11/2018 ENDOSCOPY URL 12:53 PM CDT REPORT OF PROCEDURE - 04/11/2018 ENDOSCOPY URL 12:49 PM CDT TISSUE EXAM AP Routine 04/11/2018 12:11 PM CDT COLONOSCOPY 04/11/2018 Alcoholic cirrhosis of 12:00 PM CDT liver without ascites (HCC) Screening for malignant neoplasm UPPER ENDOSCOPY,BIOPSY 04/11/2018 Alcoholic cirrhosis of 12:00 PM CDT liver without ascites (HCC) Screening for malignant neoplasm PROTHROMBIN TIME/INR STAT 04/11/2018 10:41 AM CDT PROTHROMBIN TIME/INR Routine 02/14/2018 Other cirrhosis of liver 10:59 AM CDT (HCC) HEPATIC FUNCTION PANEL Routine 02/14/2018 Other cirrhosis of liver 10:59 AM CDT (HCC) BASIC METABOLIC PANEL (7) Routine 02/14/2018 Other cirrhosis of liver 10:59 AM CDT (HCC) CBC W/PLT COUNT & AUTO Routine 02/14/2018 Other cirrhosis of liver DIFFERENTIAL 10:58 AM CDT (HCC) CBC W/PLT COUNT & AUTO Routine 02/14/2018 Other cirrhosis of liver DIFFERENTIAL 10:58 AM CDT (HCC) after 01/27/2018 Results * US abdomen complete (10/31/2018 11:01 AM CDT) Specimen Narrative Performed At FINAL REPORT [facility] Ultrasound of the Abdomen, 10/31/2018. Clinical History:Cirrhosis. Comparison: 12/22/2015. Discussion: Sonographic evaluation of the abdomen is performed. Liver: 14.1 cm in length at the right midclavicular line, normal in size.Normal cirrhotic morphology. No mass.Main portal vein diameter 1.0 cm. Biliary tree:Common duct 5 mm.No biliary dilatation. Gallbladder:Cholelithiasis.No wall thickening.No pericholecystic fluid.Absent sonographic Simon sign. Pancreas: Obscured by bowel gas. Ascites:None. Spleen:8.3 cm in length, normal in size. Kidneys: Right kidney 9.9 cm in length, normal in size, with cortical thickness of 1.2 cm.Left kidney 9.7 cm in length, normal in size, with cortical thickness of 1.1 cm.Normal cortical echogenicity.No mass.No shadowing calculus.No hydronephrosis. IVC/Aorta:Segments partially seen.Unremarkable. Impression: 1. Cirrhotic liver. No worrisome mass visualized. 2. Cholelithiasis. Signed: Wali Turcios MD Report Verified Date/Time:10/31/2018 17:01:28 Reading Location: [address] Radiology Reading Room Procedure Note Interface, External Ris In - 10/31/2018 5:03 PM CDT FINAL REPORT Ultrasound of the Abdomen, 10/31/2018. Clinical History: Cirrhosis. Comparison: 12/22/2015. Discussion: Sonographic evaluation of the abdomen is performed. Liver: 14.1 cm in length at the right midclavicular line, normal in size. Normal cirrhotic morphology. No mass. Main portal vein diameter 1.0 cm. Biliary tree: Common duct 5 mm. No biliary dilatation. Gallbladder: Cholelithiasis. No wall thickening. No pericholecystic fluid. Absent sonographic Simon sign. Pancreas: Obscured by bowel gas. Ascites: None. Spleen: 8.3 cm in length, normal in size. Kidneys: Right kidney 9.9 cm in length, normal in size, with cortical thickness of 1.2 cm. Left kidney 9.7 cm in length, normal in size, with cortical thickness of 1.1 cm. Normal cortical echogenicity. No mass. No shadowing calculus. No hydronephrosis. IVC/Aorta: Segments partially seen. Unremarkable. Impression: 1. Cirrhotic liver. No worrisome mass visualized. 2. Cholelithiasis. Signed: Wali Turcios MD Report Verified Date/Time: 10/31/2018 17:01:28 Reading Location: [address] Radiology Reading Room Performing Organization Address City/State/Zipcode Phone Number [facility] * HBSAG Confirmation (08/12/2018 12:20 PM [employer]) Hep. B Surface Ag Confirmed Positive (A) Unconfirmed, HBSAG [facility] Confirmation Negative [facility] Specimen Blood Performing Organization Address City/State/Zipcode Phone Number [facility] [address] [place] [address] [facility] * CBC with platelet count + automated diff (08/12/2018 12:20 PM [employer] COUNSELOR) Only the most recent of 2 results within the time period is included. WBC 7.8 3.5 - 10.5 K/L [facility] RBC 4.11 3.93 - 5.22 M/L [facility] Hemoglobin 13.3 11.2 - 15.7 GM/DL [facility] Hematocrit 40.5 34.1 - 44.9 % [facility] MCV 98.5 (H) 79.4 - 94.8 fL [facility] MCH 32.4 (H) 25.6 - 32.2 pg [facility] MCHC 32.8 32.2 - 35.5 GM/DL [facility] RDW 12.6 11.7 - 14.4 % [facility] Platelets 202 150 - 450 K/CU MM [facility] MPV 11.4 9.4 - 12.3 fL [facility] nRBC 0 0 - 0 /100 WBC [facility] % Neutros 55 % [facility] % Lymphs 32 % [facility] % Monos 9 % [facility] % Eos 2 % [facility] % Baso 1 % [facility] # Neutros 4.28 1.56 - 6.13 K/L [facility] # Lymphs 2.50 1.18 - 3.74 K/L [facility] # Monos 0.73 (H) 0.24 - 0.36 K/L [facility] # Eos 0.19 0.04 - 0.36 K/L [facility] # Baso 0.08 0.01 - 0.08 K/L [facility] Immature 0 0 - 1 % [facility] Granulocytes-[facility] Specimen Blood Performing Organization Address City/[facility]/Zipcode Phone Number [address] * Alpha fetoprotein (AFP), tumor marker (08/12/2018 12:20 PM [employer]) Alpha-Fetoprotein 2.5 <10.0 ng/mL [facility] Specimen Blood Performing Organization Address City/State/[place] [address] [phone] * Hepatitis B surface antigen (08/12/2018 12:20 PM [employer]) hepatitis B Surface Ag Reactive (A) Nonreactive [facility] Specimen Blood Performing Organization Address City/State/[place] [address] [phone] * Pro-time/INR (08/12/2018 12:20 PM [employer]) Only the most recent of 3 results within the time period is included. Protime 23.1 (H) 11.7 - 14.7 seconds [facility] INR 2.1 <=5.9 [facility] Specimen Blood Narrative Performed At RECOMMENDED COUMADIN/WARFARIN INR THERAPY RANGES [facility] STANDARD DOSE: 2.0 - 3.0 Includes: PROPHYLAXIS for venous thrombosis, [facility] systemic embolization; TREATMENT for venous thrombosis and/or pulmonary embolus. HIGH RISK: Target INR is 2.5-3.5 for patients with mechanical heart valves. Performing Organization Address City/[facility] Phone Number [address] [address] [facility] * Hepatic function panel (08/12/2018 12:20 PM [employer]) Only the most recent of 2 results within the time period is included. Protein, Total 7.3 6.0 - 8.3 gm/dL [facility] Albumin 4.0 3.5 - 5.0 g/dL [facility] Total Bilirubin 0.4 0.2 - 1.2 mg/dL [facility] Bilirubin, Direct 0.2 0.1 - 0.5 mg/dL [facility] Alkaline Phosphatase 85 40 - 150 U/L [facility] AST 19 5 - 34 U/L [facility] ALT 14 6 - 55 U/L [facility] Specimen Blood Performing Organization Address City/[facility] Phone Number [facility] [address] [place] [address] [facility] * Basic Metabolic Panel (08/12/2018 12:20 PM [employer]) Only the most recent of 2 results within the time period is included. Sodium 137 136 - 145 meq/L [facility] Potassium 4.6 3.5 - 5.1 meq/L [facility] Chloride 105 98 - 107 meq/L [facility] CO2 25 22 - 29 meq/L [facility] BUN 13 7 - 21 mg/dL [facility] Creatinine 0.92 0.57 - 1.25 mg/dL [facility] Glucose 100 70 - 105 mg/dL [facility] Calcium 9.6 8.4 - 10.2 mg/dL [facility] EGFR 63Comment: ESTIMATED GFR IS mL/min/1.73 sq m [facility] NOT ACCURATE CREATININE [facility] CLEARANCE IN PREDICTING GLOMERULAR FILTRATION RATE. ESTIMATED GFR IS NOT APPLICABLE FOR DIALYSIS PATIENTS. Specimen Blood Performing Organization Address City/State/Zipcode Phone Number [facility] [address] [place] [address] [facility] * REPORT OF PROCEDURE - ENDOSCOPY URL (04/11/2018 12:53 PM CDT) Narrative Performed At * REPORT OF PROCEDURE - ENDOSCOPY URL (04/11/2018 12:49 PM CDT) Narrative Performed At * Tissue Exam (04/11/2018 12:11 PM CDT) Case Report Surgical Pathology [facility] Report [facility] Case: [id number] Authorizing Provider:Cameron White MD Collected: 04/11/2018 1211 Ordering Location: [facility] Endoscopy Received: 04/11/2018 1546 Services Pathologist: Janina Bai MD Specimen:Distal Esophagus, barretts bx via forcep- R/O dysplasia DIAGNOSIS A. ESOPHAGUS, DISTAL, [facility] ENDOSCOPIC MUCOSAL BIOPSIES 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 No goblet cell metaplasia is seen. Intradepartmental consultation: Dr. Victorino Grace has been consulted on this case and concurs with the diagnosis. CPT Code(s) 59765, 54110 [facility] CLINICAL HISTORY Alcoholic cirrhosis of liver [facility] without ascites, screening for [facility] malignant neoplasm, rule out dysplasia SPECIMEN SOURCE Distal esophagus biopsy [facility] GROSS DESCRIPTION The specimen is received in a [facility] formalin-filled container [facility] labeled with the patient's information and labeled "distal esophagus biopsy" and consists of a 0.1 cm fragment of rodas-white soft tissue entirely submitted in A1. CG/ew MICROSCOPIC DESCRIPTION Microscopic examination is [facility] performed and the findings are [facility] incorporated in the diagnostic line. Multiple levels and PAS with alcian blue stains evaluated. Specimen Tissue - Distal Esophagus Performing Organization Address City/State/Zipcode Phone Number [facility] [address] [place], [place] [phone] [facility]ENTER after 01/27/2018 Insurance Payer Benefit Subscriber ID Type Phone Address Plan / Group MEDICAID - MEDICAID [facility] xxxxxxxxx Medicaid CARE COMM STAR Contracted PLAN Advance Directives For more information, please contact: [address] [address] Date Inactivated Comments Code Status Date Activated 01/06/2013 3:10 PM All possible means of support, including: cardiac massage, mechanical ventilation, and defibrillation will be used to support life. Code ONE 01/02/2013 8:44 PM
[2019-01-28] MEDS ORDERED: SODIUM CHLORIDE 0.9% 1000ML 1,000 ML IV STA ×2 (12:44→13:20)
[2019-01-28] MEDS ORDERED: SODIUM CHLORIDE 0.9% 500ML 1,000 ML IV STA (12:44)
[2019-01-28] MEDS ORDERED: SODIUM CHLORIDE 0.9% 1000ML 2,000 ML ONE (12:46)
--- NOTE | 2019-01-28 13:00 | NUR ---
NURSE ESCORTED PT TO CT SCAN; DURING CT PT FACE STARTED TO TURN BLUE NURSE CALLED ER TO HAVE NRB MASK BROUGHT OVER; NRB DELIVERED BY KATERINA GERONIMO AND VINNY SNYDER, BRITTANY, AND BEAR JEFFERSON SHOWED UP TO MONITOR PT DURING CT SCAN PT PLACED ON NRB 15 LPM AND O2 SAT INCREASED TO 100%; UPON RETURNING TO ER PT MOVED TO ROOM 1
[2019-01-28] MEDS: SODIUM CHLORIDE 0.9% 1000ML 1,000 ML IV SCH ×2 (13:24→15:03)
--- NOTE | 2019-01-28 13:37 | Diagnostic Imaging Report ---
EXAMINATION: Head and cervical spine CT without contrast. HISTORY: Status post fall, trauma, hypodensities COMPARISON: None. TECHNIQUE: Multidetector axial images were obtained without contrast from the foramen magnum to the vertex and through the cervical spine. The images were reconstructed using brain and bone algorithms. Thin section brain images were reformatted into coronal and sagittal planes. Dose modulation, iterative reconstruction, and/or weight based adjustment of the mA/kV was utilized to reduce the radiation dose to as low as reasonably achievable. HEAD CT FINDINGS: Skull/difficult/: No lytic or blastic lesions. No fractures. Parenchyma: -Cortical/subcortical encephalomalacia in the left posterior and medial occipital lobe, involving the cuneus, with associated mild compensatory dilatation of the left occipital horn, likely the sequela from remote infarct in the left PAINTER DRUM distribution. -Small chronic cortical infarct in the right posterior/inferior cerebellum. -A few scattered high matter hypodense foci, most nonspecific chronic medical vascular ischemic changes. Possible tiny chronic lacunar infarct in the left frontal cerda radiata. -No mass, hemorrhage or CT evidence of acute territorial cortical vascular insult. Brain volume: Mild generalized brain volume loss. Ventricles: No hydrocephalus or displacement. Arteries: No density suggestive of thrombus. Dural sinuses: No abnormal density. Extra-axial spaces: No abnormal density. Foramen magnum: No mass, Chiari malformation, or basilar invagination. Sella: No obvious mass. Paranasal/mastoid sinuses: Imaged portions unremarkable. CERVICAL SPINE CT FINDINGS: Alignment:Normal alignment and lordosis. Soft tissues: Partially visualized persistent distention of the proximal thoracic esophagus with air-fluid level within it, distal obstruction cannot be excluded. Tiny 2 mm nodularity along the right lateral wall of the trachea extending all the way to the level of the glottis/right ventricle or may represent sequela from remote trauma or procedure with minimal scar tissue, correlation with past medical history device.. Vertebrae: Normal height and density. No acute fracture, infection or neoplasm. Degenerative changes: C1-C2: Mild degenerative changes without stenosis. C2-C3: Mild facet arthrosis without stenosis. C3-C4: Disc osteophyte complex formation and bilateral uncovertebral arthrosis. No stenoses. C4-C5: Mild uncovertebral and facet arthrosis. No significant canal or foraminal stenosis. Minimal anterolisthesis. C5-C6: Disc osteophyte complex formation and bilateral uncovertebral arthrosis. No significant stenosis. C6-C7: Uncovertebral and facet arthrosis vein in the right. Mild to moderate right foraminal stenosis. C7-T1: Mild facet arthrosis without stenosis. IMPRESSION: Head CT: 1. No acute postraumatic intracranial hemorrhage. 2. 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 3. Mild chronic microvascular ischemic changes. Cervical spine CT: 1. No acute fractures or dislocations. 2. Chronic degenerative changes as described. Note: Acute post traumatic spinal cord, vascular or ligamentous injury cannot adequately be assessed with CT. Signed by: Dr. Arabella Nava M.D. on 01/28/2019 1:33 PM
[2019-01-28 13:43] LABS: BASOPHILS % 0.4 % (0.0-1.0); EOSINOPHILS # (AUTO) 0.1 (0.0-0.4); EOSINOPHILS % 1.6 % (0.0-6.0); HEMATOCRIT 50.4 % (34.2-44.1); LYMPHOCYTES # (AUTO) 2.9 (1.0-3.2); MEAN CORPUSCULAR HEMOGLOBIN 33.1 pg (28-32); MEAN CORPUSCULAR HGB CONC 33.7 g/dL (31-35); MEAN CORPUSCULAR VOLUME 98.1 fL (81-99); MONOCYTES # (AUTO) 0.5 (0.2-0.8); MONOCYTES % 6.3 % (4.4-11.3); NEUTROPHILS # (AUTO) 4.4 (2.1-6.9); NEUTROPHILS % 55.1 % (38.7-80.0); PLATELET COUNT 280 x10e3/uL (140-360); RED BLOOD COUNT 5.14 x10e6/uL (3.6-5.1)
--- NOTE | 2019-01-28 13:46 | Diagnostic Imaging Report ---
EXAMINATION: CHEST SINGLE (PORTABLE) INDICATION: Trauma COMPARISON: None FINDINGS: TUBES and LINES: Left chest pacer device with leads projecting over the right atrium and right ventricle. Status post cardiac valve replacement. Median sternotomy wires in place. EKG leads overlie the thorax. LUNGS: The lungs are moderately inflated. No focal consolidation or pulmonary edema. PLEURA: No pleural effusion or pneumothorax. HEART AND MEDIASTINUM: The cardiomediastinal silhouette is at the upper limits of normal in size and contour. BONES AND SOFT TISSUES: No acute fracture or dislocation. UPPER ABDOMEN: No free air under the diaphragm. IMPRESSION: No focal pneumonia or pulmonary edema. Signed by: Barbara Sawyer MD on 01/28/2019 1:43 PM
[2019-01-28 13:56] LABS: INR 2.12; PROTHROMBIN TIME 24.4 seconds (11.9-14.5)
[2019-01-28 13:57] LABS: PARTIAL THROMBOPLASTIN TIME 38.8 seconds (23.8-35.5)
[2019-01-28 14:11] LABS: B-TYPE NATRIURETIC PEPTIDE2 150.7 pg/mL (0-100)
--- NOTE | 2019-01-28 14:12 | NUR ---
STRAIGHT CATH INSERTED IN PT; PT URINE OUTPUT APPROX 700 CC MD NOTIFIED; UA COLLECTED AND SENT TO LAB
[2019-01-28 14:17] LABS: BILIRUBIN,URINE NEGATIVE (NEGATIVE); CLARITY,URINE SL CLOUDY (CLEAR); COLOR,URINE YELLOW (YELLOW); KETONES,URINE NEGATIVE (NEGATIVE); LEUKOCYTE ESTERASE ,URINE NEGATIVE (NEGATIVE); NITRITE,URINE NEGATIVE (NEGATIVE); PROTEIN,URINE DIPSTICK TRACE (NEGATIVE); URINE UROBILINOGEN 0.2 mg/dL (0.2 - 1)
[2019-01-28 14:22] LABS: AMPHETAMINES SCREEN,URINE NEGATIVE (NEGATIVE); BENZODIAZEPINES SCREEN,URINE NEGATIVE (NEGATIVE); PHENCYCLIDINE SCREEN,URINE NEGATIVE (NEGATIVE)
[2019-01-28] MEDS ORDERED: PIPER-TAZ 3.375 GM 50 ML IV ONE (14:30)
[2019-01-28] MEDS ORDERED: METRONIDAZOLE 500MG/NS 100ML 100 ML IV ONE (14:30)
[2019-01-28 14:32] LABS: AMORPHOUS SEDIMENT,URINE MODERATE (FEW); BACTERIA,URINE MODERATE /HPF; EPITHELIAL CELLS,URINE MODERATE /LPF
[2019-01-28 15:21] LABS: ALANINE AMINOTRANSFERASE 16 IU/L (0-55); ALBUMIN 3.1 g/dL (3.5-5.0); ALBUMIN/GLOBULIN RATIO 1.1 (0.8-2.0); ALKALINE PHOSPHATASE 71 IU/L (40-150); AMYLASE 126 U/L (25-125); ANION GAP 12.8 mmol/L (8-16); BLOOD UREA NITROGEN 15 mg/dL (7-26); BUN/CREATININE RATIO 17 (6-25); CALCIUM 7.5 mg/dL (8.4-10.2); CARBON DIOXIDE 17 mmol/L (22-29); CHLORIDE 114 mmol/L (98-107); CREATINE KINASE 80 IU/L (29-168); CREATININE, SERUM 0.88 mg/dL (0.57-1.11); EST GLOMERULAR FILTRATION RATE > 60 ML/MIN (60-); GLUCOSE 111 mg/dL (74-118); LIPASE 69 U/L (8-78); MAGNESIUM 1.2 MG/DL (1.3-2.1); POTASSIUM 3.8 mmol/L (3.5-5.1); SODIUM 140 mmol/L (136-145)
[2019-01-28] MEDS ORDERED: IOPAMIDOL 370 MG/ML 200 ML INFUS..BTL INJ ONE (16:09)
[2019-01-28] MEDS ORDERED: SODIUM CHLORIDE 0.9% 50ML 50 ML ONE (16:09)
--- NOTE | 2019-01-28 16:49 | Diagnostic Imaging Report ---
EXAM: CT Abdomen and Pelvis WITH intravenous contrast INDICATION: Fall, abdominal pain COMPARISON: None. TECHNIQUE: Abdomen and pelvis were scanned utilizing a multidetector helical scanner from the lung base to the pubic symphysis after administration of IV contrast. Coronal and sagittal reformations were obtained. Routine protocol was performed. Scan was performed when during portal venous phase. IV CONTRAST: 100 mL of Isovue 370 ORAL CONTRAST: Water COMPLICATIONS: None RADIATION DOSE: Total DLP: 676.19 mGy*cm Dose modulation, iterative reconstruction, and/or weight based adjustment of the mA/kV was utilized to reduce the radiation dose to as low as reasonably achievable. FINDINGS: LOWER THORAX: Mild bibasilar dependent subsegmental atelectasis. No focal consolidation. Partially visualized pacemaker lead terminating in the right ventricle. Mitral valve prosthesis. HEPATOBILIARY: No focal hepatic lesions. No biliary ductal dilatation. The gallbladder appears unremarkable. SPLEEN: No splenomegaly. PANCREAS: No focal masses or ductal dilatation. ADRENALS: No adrenal nodules. KIDNEYS/URETERS: No hydronephrosis, stones, or solid mass lesions. 1.1 cm left renal cyst. Subcentimeter right renal cysts. PELVIC ORGANS/BLADDER: Fluid-filled bladder. Status post hysterectomy. PERITONEUM / RETROPERITONEUM: No free air or fluid. LYMPH NODES: No lymphadenopathy. VESSELS: Atherosclerotic calcifications of the abdominal aorta and major branches. GI TRACT: No distention or wall thickening. Normal appendix. BONES AND SOFT TISSUES: No acute fracture or dislocation. Mild degenerative changes of the visualized spine. No suspicious lytic or blastic lesions. Anterior abdominal hernia containing fat. IMPRESSION: No evidence of traumatic injury in abdomen or pelvis. Signed by: Barbara Sawyer MD on 01/28/2019 4:45 PM
[2019-01-28] MEDS ORDERED: KEFLEX500 MG PO (17:38)
[2019-01-28] MEDS ORDERED: CIPRO500 MG PO (17:38)
[2019-01-28 17:44] VITALS: BP 121/70
[2019-01-29] MEDS ORDERED: CIPRO500 MG PO (00:29)
[2019-01-29] MEDS ORDERED: FLAGYL500 MG PO (00:29)
== END 2019-01-28 18:00 | disposition home or self-care (01) ==
LOC: ER 12:31
DX: S00.83XA Contusion of other part of head, initial encounter (principal); R55 Syncope and collapse; R19.7 Diarrhea, unspecified; W01.0XXA Fall on same level from slipping, tripping and stumbling without subsequent striking against object, initial encounter; Y92.512 Supermarket, store or market as the place of occurrence of the external cause
CPT/HCPCS: 36415; 70450; 71045; 72125; 74177; 80053; 80307; 81001; 82150; 82550; 82553; 83605; 83690; 83735; 83880; 84484; 84702; 85025; 85610; 85730; 86900; 87040; 93005; 99285; J2543; J7030; Q9967

== ENCOUNTER 2019-05-30 08:58 | Emergency (ER) | payer OTHER ==
[~2019-05-30] VITALS: Ht 162.6 cm; Wt 74.4 kg
[~2019-05-30 08:58] MED LIST changes: +CIPRO500 MG PO; +FLAGYL500 MG PO; +KEFLEX500 MG PO
[2019-05-30 09:10] VITALS: BP 133/65
[2019-05-30] MEDS ORDERED: AUGMENTIN 875-1 EACH PO (09:11)
[2019-05-30] MEDS ORDERED: TETRACAINE HCL 0.5% OPTH SOLN 4 ML BTL OP ONE ×2 (09:15→09:30)
== END 2019-05-30 09:40 | disposition home or self-care (01) ==
LOC: ER 08:58
DX: H66.011 Acute suppurative otitis media with spontaneous rupture of ear drum, right ear (principal); I10 Essential (primary) hypertension; J44.9 Chronic obstructive pulmonary disease, unspecified; F41.9 Anxiety disorder, unspecified; K21.9 Gastro-esophageal reflux disease without esophagitis; E78.5 Hyperlipidemia, unspecified; F17.200 Nicotine dependence, unspecified, uncomplicated; Z95.810 Presence of automatic (implantable) cardiac defibrillator; Z79.01 Long term (current) use of anticoagulants; Z95.2 Presence of prosthetic heart valve
CPT/HCPCS: 99283

== ENCOUNTER → 2021-08-16 | Outpatient (CLI) | payer OTHER ==
[~2021-08-16] MED LIST changes: +AUGMENTIN 875-1 EACH PO
== END ==
LOC: MAMMO 09:49
PROVIDERS: ATTEND Internal Medicine
DX: Z12.31 Encounter for screening mammogram for malignant neoplasm of breast (principal)
CPT/HCPCS: 77067

== ENCOUNTER → 2022-03-16 | Outpatient (CLI) | payer OTHER | LOC: RAD 11:41 | PROVIDERS: ATTEND Internal Medicine | DX: M54.6 Pain in thoracic spine (principal); M54.50 Low back pain, unspecified; W19.XXXA Unspecified fall, initial encounter | CPT/HCPCS: 72072; 72110 ==

== ENCOUNTER 2024-09-16 16:09 | Emergency (ER) | payer MEDICAID, OTHER ==
[~2024-09-16] VITALS: Ht 162.6 cm; Wt 74.4 kg
[2024-09-16 17:05] LABS: BASOPHILS # (AUTO) 0.1 (0.0-0.1); BASOPHILS % 0.5 % (0.0-1.0); EOSINOPHILS # (AUTO) 0.2 (0.0-0.4); EOSINOPHILS % 1.2 % (0.0-6.0); HEMATOCRIT 31.9 % (34.2-44.1); HEMOGLOBIN 10.4 g/dL (12.0-16.0); LYMPHOCYTES # (AUTO) 2.3 (1.0-3.2); LYMPHOCYTES % 18.6 % (18.0-39.1); MEAN CORPUSCULAR HGB CONC 32.6 g/dL (31-35); MEAN CORPUSCULAR VOLUME 95.2 fL (81-99); MONOCYTES # (AUTO) 1.3 (0.2-0.8); MONOCYTES % 11.1 % (4.4-11.3); NEUTROPHILS # (AUTO) 8.3 (2.1-6.9); NEUTROPHILS % 68.3 % (38.7-80.0); PLATELET COUNT 189 x10e3/uL (140-360); RED BLOOD COUNT 3.35 x10e6/uL (3.6-5.1); RED CELL DISTRIBUTION WIDTH 15.5 % (11.7-14.4); WHITE BLOOD COUNT 12.11 x10e3/uL (4.8-10.8)
[2024-09-16] MEDS: KETOROLAC TROMETHAMINE 30 MG/ML VIAL IV STA (17:08)
[2024-09-16] MEDS: FENTANYL CITRATE/PF 100MCG/2 ML INJ IV PRN (17:09)
[2024-09-16 17:22] LABS: INR 1.84; PROTHROMBIN TIME 22.2 seconds (11.9-14.5)
[2024-09-16 17:28] LABS: ANION GAP 16.4 mmol/L (8-16); CALCIUM 8.7 mg/dL (8.4-10.2); CREATININE, SERUM 0.95 mg/dL (0.57-1.11); POTASSIUM 4.4 mmol/L (3.5-5.1)
[2024-09-16] MEDS: ONDANSETRON HCL INJ 2MG/ML 2ML 2 MG/ML VIAL IV STA (20:03)
[2024-09-16] MEDS: Morphine 4mg INJECTION 4 MG/ML INJ IV ONE (20:03)
[2024-09-16 20:23] VITALS: BP 109/58; PULSE 63; RESP 14; TEMP 98
[2024-09-16] MEDS: SODIUM CHLORIDE 0.9% 250ML 250 ML IV ONE (20:25)
[2024-09-16] MEDS ORDERED: IOPAMIDOL 370 MG/ML 100 ML INFUS..BTL INJ ONE (22:04)
[2024-09-16 22:35] VITALS: PULSE 61; RESP 18; TEMP 98; O2SAT 98
[2024-09-16] MEDS: HYDROMORPHONE 1MG/1ML INJ IV STA (22:46)
== END 2024-09-16 22:58 | disposition other institution (70) ==
LOC: ER 16:31
DX: S20.211A Contusion of right front wall of thorax, initial encounter (principal); S30.1XXA Contusion of abdominal wall, initial encounter; M25.511 Pain in right shoulder; W10.8XXA Fall (on) (from) other stairs and steps, initial encounter; Y93.01 Activity, walking, marching and hiking; Y92.89 Other specified places as the place of occurrence of the external cause; Z79.01 Long term (current) use of anticoagulants; I10 Essential (primary) hypertension; J44.9 Chronic obstructive pulmonary disease, unspecified; E78.5 Hyperlipidemia, unspecified; E78.00 Pure hypercholesterolemia, unspecified; K76.9 Liver disease, unspecified; K21.9 Gastro-esophageal reflux disease without esophagitis; F41.9 Anxiety disorder, unspecified; Z95.810 Presence of automatic (implantable) cardiac defibrillator; Z95.4 Presence of other heart-valve replacement
CPT/HCPCS: 36415; 70450; 71260; 72125; 73030; 74177; 80048; 85025; 85610; 86850; 86900; 99285; J1171; J1885; J2270; J2405; J3010; J7050; P9017; Q9967

== ENCOUNTER 2024-12-01 13:19 | Emergency (ER) | payer MEDICAID ==
[~2024-12-01] VITALS: Ht 172.7 cm; Wt 77.1 kg
[2024-12-01] MEDS: KETOROLAC TROMETHAMINE 30 MG/ML VIAL IV STA ×2 (14:12→15:51)
[2024-12-01 14:13] VITALS: TEMP 98.2
[2024-12-01 14:53] LABS: BASOPHILS # (AUTO) 0.1 (0.0-0.1); BASOPHILS % 0.5 % (0.0-1.0); EOSINOPHILS # (AUTO) 0.1 (0.0-0.4); EOSINOPHILS % 0.9 % (0.0-6.0); HEMATOCRIT 32.3 % (34.2-44.1); HEMOGLOBIN 10.5 g/dL (12.0-16.0); LYMPHOCYTES # (AUTO) 1.9 (1.0-3.2); LYMPHOCYTES % 18.2 % (18.0-39.1); MEAN CORPUSCULAR HGB CONC 32.5 g/dL (31-35); MEAN CORPUSCULAR VOLUME 95.3 fL (81-99); MONOCYTES # (AUTO) 1.1 (0.2-0.8); NEUTROPHILS # (AUTO) 7.4 (2.1-6.9); PLATELET COUNT 203 x10e3/uL (140-360); RED BLOOD COUNT 3.39 x10e6/uL (3.6-5.1); RED CELL DISTRIBUTION WIDTH 15.5 % (11.7-14.4); WHITE BLOOD COUNT 10.55 x10e3/uL (4.8-10.8)
[2024-12-01] MEDS: METOCLOPRAMIDE HCL 10 MG/2ML VIAL IV ONE (15:19)
[2024-12-01] MEDS: DIPHENHYDRAMINE HCL 25 MG CAP PO ONE (15:19)
[2024-12-01] MEDS: SODIUM CHLORIDE 0.9% 1000ML 1,000 ML IV SCH (15:20)
[2024-12-01 16:22] LABS: ALBUMIN 3.5 g/dL (3.5-5.0); ALBUMIN/GLOBULIN RATIO 0.9 (0.8-2.0); ANION GAP 15.7 mmol/L (8-16); BILIRUBIN,TOTAL 0.3 mg/dL (0.2-1.2); CALCIUM 7.5 mg/dL (8.4-10.2); CREATININE, SERUM 0.83 mg/dL (0.57-1.11); POTASSIUM 3.7 mmol/L (3.5-5.1); TOTAL PROTEIN 7.3 g/dL (6.5-8.1)
[2024-12-01 16:27] LABS: TROPONIN I 0.017 ng/mL (0-0.300)
[2024-12-01 17:32] VITALS: PULSE 66; RESP 18; O2SAT 95
== END 2024-12-01 17:34 | disposition home or self-care (01) ==
LOC: ER 13:58
DX: R51.9 Headache, unspecified (principal); M54.12 Radiculopathy, cervical region; I10 Essential (primary) hypertension; E78.5 Hyperlipidemia, unspecified; K21.9 Gastro-esophageal reflux disease without esophagitis; F41.9 Anxiety disorder, unspecified; K76.9 Liver disease, unspecified; Z79.01 Long term (current) use of anticoagulants; Z95.4 Presence of other heart-valve replacement; Z95.810 Presence of automatic (implantable) cardiac defibrillator
CPT/HCPCS: 36415; 70450; 71045; 72125; 80053; 84484; 85025; 93005; 99283; J1885; J2765; J7030